=== PATIENT | male | born 1965 | race Caucasian/White ===

== ENCOUNTER 2017-02-04 09:35 | Emergency (ER) | payer MEDICAID ==
[~2017-02-04] VITALS: Ht 170.2 cm; Wt 56.9 kg
[2017-02-04 09:38] VITALS: BP 134/73
== END 2017-02-04 11:16 | disposition home or self-care (01) ==
LOC: ED 11:04
DX: J98.01 Acute bronchospasm (principal); J06.9 Acute upper respiratory infection, unspecified
CPT/HCPCS: 71020; 99284